=== PATIENT | female | born 1960 | race Caucasian/White ===

== ENCOUNTER → 2023-09-15 12:40 | Outpatient (REF) | payer OTHER, SELFPAY | LOC: HWRAD 12:40 | PROVIDERS: ATTENDING PHYSICIAN Nurse Practitioner | DX: M85.80 Other specified disorders of bone density and structure, unspecified site (principal); Z12.31 Encounter for screening mammogram for malignant neoplasm of breast | CPT/HCPCS: 77063; 77067; 77080 ==

== ENCOUNTER 2024-04-09 13:58 | Emergency (ER) | payer OTHER, SELFPAY ==
[2024-04-09 14:00] VITALS: BP 161/114
--- NOTE | 2024-04-09 14:02 | ED.GENMED ---
ED Provider Triage
<Antonio Esteves PA-C - Last Filed: 04/09/24 14:03>
-
Patient seen by provider in Triage?: Seen in Triage
63-year-old female presents from cardiac services. She was receiving an elective stress test was noted to be in atypical rapid atrial flutter. This would be new for her unknown onset. She denies chest pain. She notes a slight headache. She
denies shortness of breath. She has no other complaints. Sent in by cardiology. Will initiate workup with labs and EKG
she is tachycardic at triage
History of Present Illness
<Antonio Esteves PA-C - Last Filed: 04/09/24 14:03>
General
Chief Complaint: Heart Rate Problem
Time Seen by Provider: 04/09/24 16:36
<Lia Jackson DO - Last Filed: 04/09/24 17:05>
History of Present Illness
History of Present Illness:
63-year-old female with history of hypertension on metoprolol presenting from outpatient cardiology testing for elevated heart rate. Patient sent in by cardiology. Patient was due to get a stress test and prior to testing, was found to have a
heart rate in the 140s-150s. Cardiology was concerned for atypical a flutter. On arrival to the hospital, patient denies any known history of abnormal cardiac rhythms. Does report that she has had palpitations in the past, and has not had a
metoprolol for 3 days secondary to getting the stress test. Denies any associated chest pain or difficulty breathing. Denies recent fever or illness. Denies additional acute medical complaints
Phy Exam
<Lia Jackson DO - Last Filed: 04/09/24 17:05>
Physical Exam
Physical Exam:
General: Well-appearing, no clinical signs of dehydration, nontoxic and in no acute distress
HEENT: protecting airway
Neck: appears supple
CV: Normal heart rate, regular rhythm
Resp: No accessory muscle use, no increased work of breathing
Abd: No distention
Extremities: No deformities, no swelling, no erythema, pulses and sensation intact
Neuro: alert, no focal neurologic deficit
: deferred
Rectal: deferred
Psych: Normal affect
Skin: Intact
Course
<Antonio Esteves PA-C - Last Filed: 04/09/24 14:03>
Orders/Labs/Results
Orders:
Orders
04/09/24 14:00
Electrocardiogram (*1) Urgent
Reason for Study: Palpitations
EKG- Treatment ONCE
04/09/24 14:12
Complete Blood Count/With Diff Urgent
Comprehensive Metabolic Panel Urgent
TSH Reflex To Free T4 Urgent
04/09/24 16:45
EKG [Electrocardiogram (*1)] Urgent
Reason for Study: Palpitations
EKG- Treatment ONCE
Abnormal Lab Results
04/09/24
14:12
Absolute Monos (auto) 0.7 H 10^3/uL
(0.1-0.6)
Albumin 5.1 H g/dl
(3.5-5.0)
04/09/24 14:12
04/09/24 14:12
Vital Signs
Initial and Last Documented VS:
Initial Vital Signs
Temp Pulse Resp BP Pulse Ox
98.0 F 137 18 161/114 96
04/09/24 14:00 04/09/24 14:00 04/09/24 14:00 04/09/24 14:00 04/09/24 14:00
Last Documented Vital Signs
Temp Pulse Resp BP Pulse Ox
98.0 F 86 17 150/95 99
04/09/24 14:00 04/09/24 16:16 04/09/24 16:16 04/09/24 16:15 04/09/24 16:16
<Lia Jackson DO - Last Filed: 04/09/24 17:05>
Orders/Labs/Results
Orders:
Orders
04/09/24 14:00
Electrocardiogram (*1) Urgent
Reason for Study: Palpitations
EKG- Treatment ONCE
04/09/24 14:12
Complete Blood Count/With Diff Urgent
Comprehensive Metabolic Panel Urgent
TSH Reflex To Free T4 Urgent
04/09/24 16:45
EKG [Electrocardiogram (*1)] Urgent
Reason for Study: Palpitations
EKG- Treatment ONCE
Abnormal Lab Results
04/09/24
14:12
Absolute Monos (auto) 0.7 H 10^3/uL
(0.1-0.6)
Albumin 5.1 H g/dl
(3.5-5.0)
04/09/24 14:12
04/09/24 14:12
Vital Signs
Initial and Last Documented VS:
Initial Vital Signs
Temp Pulse Resp BP Pulse Ox
98.0 F 137 18 161/114 96
04/09/24 14:00 04/09/24 14:00 04/09/24 14:00 04/09/24 14:00 04/09/24 14:00
Last Documented Vital Signs
Temp Pulse Resp BP Pulse Ox
98.0 F 86 17 150/95 99
04/09/24 14:00 04/09/24 16:16 04/09/24 16:16 04/09/24 16:15 04/09/24 16:16
<Lia Jackson DO - Last Filed: 04/09/24 17:05>
MDM/Problems Addressed
MDM/Problems Addressed:
63-year-old female presenting for elevated heart rate from outpatient stress test. Vital signs on arrival significant for tachycardia.
On exam patient is well-appearing, no acute distress or discomfort. Patient had EKG upon arrival, tachycardic. On my assessment, patient is now in rate controlled sinus rhythm. Will repeat EKG, however no present evidence of A-fib or a flutter.
Screening laboratory analysis obtained, normal electrolyte panel, normal TSH. Given resolution of heart rate, and no present symptoms, in discussion with cardiology, plan for outpatient follow-up. Cardiology recommending to go back on metoprolol.
Patient is in agreement with this plan. Strict return precautions communicated and patient verbalized understanding
<Lia Jackson DO - Last Filed: 04/09/24 17:05>
*EKG
Interpreted by ED Provider?: Yes
EKG Intrepretation Date: 04/09/24
EKG Intrepretation Time: 17:02
Interpretation: abnormal
Comparison EKG: no comparison EKG present
Heart Rate: 135
Rate: tachycardiac
Rhythm: sinus
[place]: normal axis
Interval: first degree heart block
QRS Pattern: normal QRS
Ischemia: other (diffuse TWI)
*Critical Care Note
Total Time (30-74mins, 75-104mins- exclusive of procedures): Not Applicable
ED Attending Note
<Antonio Esteves PA-C - Last Filed: 04/09/24 14:03>
-
Portions of this chart may have been created with voice recognition software.� Occasional wrong word or��sound alike� substitutions may have occurred due to the inherent limitations of voice recognition software.
Discharge Plan
Interventions
Interventions:
*Risk Screen - Suicide Last Done: 04/09/24 14:00
*General Assessment Last Done: 04/09/24 14:00
*Neglect/Abuse Screening Last Done: 04/09/24 14:00
ED- Fall Risk Assessment Last Done: 04/09/24 16:13
*ED COVID-19 Vaccine History Last Done: 04/09/24 14:00
ED- Cardiac Assessment Last Done: 04/09/24 16:22
ED- Pulmonary Assessment Last Done: 04/09/24 16:22
Discharge Date and Time
Print Language: SLOVENIAN
[2024-04-09 14:19] LABS: % Basophils 0.5 % (0-2); % Eosinophils 2.4 % (0-6); % Immature Granulocytes 0.4 % (0-0.5); % Lymphocytes 22.9 % (20.5-51.1); % Monocytes 9.3 % (1.7-9.3); % Neutrophils 64.5 % (42.2-75.2); Absolute Eosinophils 0.2 10^3/uL (0-0.7); Absolute Lymphocytes 1.7 10^3/uL (1.2-3.4); Absolute Monocytes 0.7 10^3/uL (0.1-0.6); Absolute Neutrophils 4.9 10^3/uL (1.4-6.5); Hematocrit 44.3 % (37.0-47.0); Hemoglobin 14.8 g/dL (12.0-16.0); Mean Corp Hgb Conc. 33.4 g/dL (33.0-37.0); Mean Corpuscular Hgb 30.8 pg (27.0-31.0); Mean Corpuscular Volume 92.3 fL (81.0-99.0); Mean Platelet Volume 9.5 fL (7.4-10.4); Nucleated Red Blood Cells % 0 %; Platelet Count 221 10^3/uL (130-400); Red Cell Dist. Width 13.8 % (11.5-14.5); White Blood Cell Count 7.5 10^3/uL (4.8-10.8)
[2024-04-09 14:42] LABS: ALT (SGPT) 16 U/L (0-35); AST (SGOT) 27 U/L (14-36); Albumin 5.1 g/dl (3.5-5.0); Alkaline Phosphatase 67 U/L (38-126); Blood Urea Nitrogen 16 mg/dl (7-17); Calcium 10.1 mg/dl (8.4-10.2); Carbon Dioxide 24 mmol/L (22-30); Chloride 101 mmol/L (98-107); Glucose 89 mg/dl (70-99); Potassium 4.7 mmol/L (3.5-5.1); Sodium 140 mmol/L (135-145); Total Bilirubin 0.6 mg/dl (0.2-1.3); Total Protein 7.9 g/dl (6.3-8.2); eGFR > 60.00
[2024-04-09 15:04] LABS: TSH Reflex To Free T4 2.93 uIU/ml (0.47-4.68)
--- NOTE | 2024-04-09 16:00 | EDRN ---
Dr. Todd in to see pt at this time. Pt told Dr. Todd about dizziness returning when in room and said did ask about a dose of meclizine.
[2024-04-09 16:15] VITALS: BP 150/95
[2024-04-09 16:22] VITALS: BMI 21.1
[2024-04-09 17:00] VITALS: BP 147/87
== END 2024-04-09 17:44 | disposition home or self-care (01) ==
LOC: EMR 13:58
PROVIDERS: Physician Assistant; EMERGENCY PHYSICIAN Student in an Organized Health Care Education/Training Program
DX: R00.0 Tachycardia, unspecified (principal); I10 Essential (primary) hypertension
CPT/HCPCS: 99284; 80053; 84443; 85025; 93005

== ENCOUNTER → 2025-02-18 14:42 | Outpatient (REF) | payer MEDICARE, OTHER, SELFPAY | LOC: HWWDC 14:42 | DX: Z12.31 Encounter for screening mammogram for malignant neoplasm of breast (principal) | CPT/HCPCS: 77063; 77067 ==

== ENCOUNTER → 2025-06-12 14:42 | Outpatient (REF) | payer MEDICARE, OTHER, SELFPAY | LOC: EMG 14:42 | PROVIDERS: ATTENDING PHYSICIAN Orthopaedic Surgery | DX: R20.0 Anesthesia of skin (principal); G56.03 Carpal tunnel syndrome, bilateral upper limbs | CPT/HCPCS: 95886; 95911 ==